=== PATIENT | female | born 2000 | race Caucasian/White ===

== ENCOUNTER 2024-01-01 21:52 | Emergency (ER) | payer SELFPAY ==
[2024-01-01 22:00] VITALS: BP 100/54; PULSE 91; RESP 16; TEMP 97.7; BMI 22.6
[2024-01-01] MEDS ORDERED: ACETAMINOPHEN INJECTION 100 ML IVPB ONE (22:24)
[2024-01-01] MEDS: LACTATED RINGERS SOLUTION 1000 ML INFUS.BAG IV ONE (22:43)
[2024-01-01] MEDS: ACETAMINOPHEN 1000 MG/100 ML BAG IVPB ONE (22:43)
[2024-01-01 22:49] LABS: BASO % 0.2 % (0-2.0); EOS % 0.3 % (0-4.5); HEMATOCRIT 42.4 % (32.4-45.2); LYMPH % 14.7 % (8-40); MCH 27.2 pg (25.7-33.7); MCHC 33.1 g/dl (32.0-36.0); MEAN CELL VOLUME 82.2 fl (80-96); MONO % 5.4 % (3.8-10.2); NEUT % 79.4 % (42.8-82.8); PLATELET COUNT 290 10^3/uL (134-434); RBC 5.15 M/mm3 (3.60-5.2); RDW 13.5 % (11.6-15.6); WHITE BLOOD COUNT 11.9 K/mm3 (4.0-10.0)
[2024-01-01 23:18] LABS: POTASSIUM 3.6 mmol/L (3.5-5.1)
[2024-01-01 23:20] LABS: ALBUMIN 4.2 g/dl (3.4-5.0); CALCIUM 9.4 mg/dL (8.5-10.1)
[2024-01-01 23:21] LABS: BLOOD UREA NITROGEN 18.7 mg/dL (7-18); MAGNESIUM 2.1 mg/dL (1.8-2.4)
[2024-01-01 23:24] LABS: CREATININE 0.8 mg/dL (0.55-1.3); PHOSPHOROUS 2.4 mg/dL (2.5-4.9)
[2024-01-01 23:25] LABS: BILIRUBIN,TOTAL 0.3 mg/dL (0.2-1)
[2024-01-02 01:03] LABS: URINE APPEARANCE CLEAR; URINE BILIRUBIN NEGATIVE (NEGATIVE); URINE COLOR YELLOW; URINE GLUCOSE (UA) NEGATIVE (NEGATIVE); URINE KETONE 3+ (NEGATIVE); URINE LEUK ESTERASE NEGATIVE (NEGATIVE); URINE NITRITE NEGATIVE (NEGATIVE); URINE PROTEIN NEGATIVE (NEGATIVE); URINE UROBILINOGEN 0.2 mg/dL (0.2-1.0)
[2024-01-02 01:12] LABS: URINE BARBITURATES NEGATIVE (NEGATIVE)
[2024-01-02 01:13] LABS: COCAINE, UR NEGATIVE (NEGATIVE); METHADONE, UR NEGATIVE (NEGATIVE); PHENCYCLIDINE,URINE NEGATIVE (NEGATIVE)
[2024-01-02 01:25] LABS: OPIATES, URI POSITIVE (NEGATIVE); URINE AMPHETAMINES NEGATIVE (NEGATIVE); URINE BENZODIAZEPINES POSITIVE (NEGATIVE)
== END 2024-01-02 02:11 | disposition home or self-care (01) ==
LOC: JER 21:52
PROC: 3E033NZ Introduction of Analgesics, Hypnotics, Sedatives into Peripheral Vein, Percutaneous Approach (ICD-10-PCS; principal; 2024-01-01)
DX: R51.9 Headache, unspecified (principal); R29.898 Other symptoms and signs involving the musculoskeletal system; F11.90 Opioid use, unspecified, uncomplicated; F13.90 Sedative, hypnotic, or anxiolytic use, unspecified, uncomplicated; F12.90 Cannabis use, unspecified, uncomplicated
CPT/HCPCS: 36415; 70450-TC; 71046-TC-FY; 72070-TC-FY; 72125-TC; 73502-TC-LT-FY; 80053; 80307; 81003; 82550; 82553; 82962; 83605; 83735; 84100; 84484; 84703; 85025; 86850; 86900; 86901; 87086; 93005; 93010; 99285-25; J0131

== ENCOUNTER 2024-02-15 20:32 | Inpatient (IN) | payer SELFPAY ==
[2024-02-15 20:40] VITALS: BMI 24.4
[2024-02-15 21:28] LABS: BASO % 0.4 % (0-2.0); EOS % 0.6 % (0-4.5); HEMOGLOBIN 12.7 GM/dL (10.7-15.3); LYMPH % 38.4 % (8-40); MCH 27.3 pg (25.7-33.7); MCHC 33.4 g/dl (32.0-36.0); MEAN CELL VOLUME 81.9 fl (80-96); MEAN PLT VOLUME 7.4 fl (7.5-11.1); MONO % 6.2 % (3.8-10.2); NEUT % 54.4 % (42.8-82.8); PLATELET COUNT 231 10^3/uL (134-434); RBC 4.64 M/mm3 (3.60-5.2); RDW 12.9 % (11.6-15.6); WHITE BLOOD COUNT 6.2 K/mm3 (4.0-10.0)
[2024-02-15 21:37] LABS: CHLORIDE 106 mmol/L (98-107); POTASSIUM 3.5 mmol/L (3.5-5.1); SODIUM 139 mmol/L (136-145)
[2024-02-15 21:39] LABS: ALBUMIN 3.6 g/dl (3.4-5.0); ANION GAP 3 mmol/L (4-13); CALCIUM 8.3 mg/dL (8.5-10.1); CO2 29 mmol/L (21-32); GLUCOSE,RANDOM 110 mg/dL (74-106)
[2024-02-15 21:42] LABS: CREATININE 0.9 mg/dL (0.55-1.3); SGOT/AST 16 U/L (15-37); SGPT/ALT 24 U/L (13-61)
[2024-02-15 21:44] LABS: BILIRUBIN,TOTAL 0.2 mg/dL (0.2-1); TOT PROT 6.7 g/dl (6.4-8.2)
[2024-02-15 21:45] LABS: ALK PHOS 42 U/L (45-117)
[2024-02-15 21:47] LABS: BLOOD UREA NITROGEN 19.4 mg/dL (7-18)
[2024-02-15] MEDS ORDERED: ACETAMINOPHEN 325 MG TABLET (FP) PO PRN (22:15)
[2024-02-15] MEDS ORDERED: MORPHINE SULFATE 2 MG/ML SYRINGE IVPUSH PRN (22:15)
[2024-02-16 00:35] LABS: BASO % 0.2 % (0-2.0); EOS % 0.3 % (0-4.5); HEMATOCRIT 38.1 % (32.4-45.2); HEMOGLOBIN 12.4 GM/dL (10.7-15.3); LYMPH % 30.3 % (8-40); MCHC 32.5 g/dl (32.0-36.0); MEAN CELL VOLUME 83.1 fl (80-96); MEAN PLT VOLUME 7.5 fl (7.5-11.1); MONO % 5.5 % (3.8-10.2); NEUT % 63.7 % (42.8-82.8); PLATELET COUNT 230 10^3/uL (134-434); RBC 4.58 M/mm3 (3.60-5.2); RDW 12.6 % (11.6-15.6); WHITE BLOOD COUNT 7.9 K/mm3 (4.0-10.0)
[2024-02-16 03:14] LABS: EPI CELLS >36 /uL (0-25.1); HYALINE CASTS 2 /uL (0-3.1); PH,URINE 6.5 (5.0-8.0); URINE APPEARANCE CLOUDY; URINE BACTERIA 893 /uL (0-1359); URINE BILIRUBIN NEGATIVE (NEGATIVE); URINE COLOR YELLOW; URINE GLUCOSE (UA) NEGATIVE (NEGATIVE); URINE KETONE 2+ (NEGATIVE); URINE LEUK ESTERASE TRACE (NEGATIVE); URINE NITRITE NEGATIVE (NEGATIVE); URINE PROTEIN 1+ (NEGATIVE); URINE RBC 113 /uL (0-23.9); URINE WBC 47 /uL (0-25.8)
[2024-02-16 08:20] VITALS: PULSE 66; RESP 18
[2024-02-16] MEDS ORDERED: ENOXAPARIN NA (PORCINE) 40 MG/0.4 ML DISP.SYRIN SQ SCH ×2 (10:00)
[2024-02-16 10:50] LABS: POTASSIUM 4.2 mmol/L (3.5-5.1)
[2024-02-16 10:57] LABS: ALBUMIN 3.8 g/dl (3.4-5.0); BLOOD UREA NITROGEN 20.3 mg/dL (7-18); CALCIUM 8.8 mg/dL (8.5-10.1); MAGNESIUM 2.2 mg/dL (1.8-2.4)
[2024-02-16 11:00] LABS: CREATININE 0.7 mg/dL (0.55-1.3); PHOSPHOROUS 3.6 mg/dL (2.5-4.9)
[2024-02-16 11:02] LABS: BILIRUBIN,TOTAL 0.7 mg/dL (0.2-1)
[2024-02-16 13:06] LABS: COCAINE, UR NEGATIVE (NEGATIVE); METHADONE, UR NEGATIVE (NEGATIVE); URINE AMPHETAMINES NEGATIVE (NEGATIVE); URINE BARBITURATES NEGATIVE (NEGATIVE); URINE BENZODIAZEPINES POSITIVE (NEGATIVE)
[2024-02-16 13:07] LABS: PHENCYCLIDINE,URINE NEGATIVE (NEGATIVE)
[2024-02-16 13:09] LABS: OPIATES, URI POSITIVE (NEGATIVE)
[2024-02-16 16:09] VITALS: BP 107/71; TEMP 98.4
[2024-02-16] MEDS: ESCITALOPRAM OXALATE 10 MG TABLET PO SCH (18:20)
== END 2024-02-16 17:21 | disposition left against medical advice (07) | DRG 770 ==
LOC: JER 20:32 → JERBED 21:59 → J5S 02-16 01:32 → OBSVTOIN 02-16 10:31
PROVIDERS: ADMIT Internal Medicine
DX: F13.230 Sedative, hypnotic or anxiolytic dependence with withdrawal, uncomplicated (principal); F12.10 Cannabis abuse, uncomplicated; R56.9 Unspecified convulsions; F19.10 Other psychoactive substance abuse, uncomplicated
CPT/HCPCS: 36415; 70450-TC; 71045-TC-FY; 72125-TC; 80053; 80307; 81003; 83605; 83735; 84100; 84702; 85025; 87086; 93005; 93010; 99285-25; G0378